=== PATIENT | female | born 1995 | race Two or more races ===

== ENCOUNTER 2024-09-25 05:11 | Emergency (ER) | payer MEDICAID, SELFPAY ==
[2024-09-25 05:11] VITALS: BMI 42.8
[2024-09-25 05:25] VITALS: BP 134/92; PULSE 83; RESP 18; TEMP 36.8; O2SAT 94
--- NOTE | 2024-09-25 05:30 | PD.EDRME ---
Rapid Medical Screening Exam [facility] Arrival date/time: 09/25/24 05:11 28F with history of asthma presents to ED with several days of cough, congestion, and SOB. Patient has been taking 20 mg prednisone BID from PCP and using her albuterol w/o relief. Chief Complaint: Shortness of Breath/Dyspnea Vital signs: Vital Signs Temperature 98.3 F 09/25/24 05:25 Pulse Rate 83 09/25/24 05:25 Respiratory Rate 18 09/25/24 05:25 Blood Pressure 134/92 H 09/25/24 05:25 Pulse Oximetry (%) 94 L 09/25/24 05:25 Oxygen Delivery Method Room Air 09/25/24 05:25
[2024-09-25] MEDS: DEXAMETHASONE SOD PHOS INJ 10 MG/ML VIAL PO (05:50)
[2024-09-25] MEDS: IPRATROPIUM RT 0.5 MG/ 2.5 ML NEBU 1 MG INH (05:59)
[2024-09-25] MEDS: LEVALBUTEROL RT 1.25 MG/0.5 ML NEBU 5 MG INH (05:59)
[2024-09-25 06:04] VITALS: PULSE 98; RESP 16; O2SAT 99
--- NOTE | 2024-09-25 06:54 | XR_ITS ---
Examination: PA lateral chest 2 views TECHNIQUE: Upright PA and lateral chest 2 views Exam date and time: September 25, 2024, 0723 hours Comparison February 07, 2022 INDICATIONS: Shortness of breath today. FINDINGS: Mild to moderate vascular congestion Normal heart size No lobar pneumonia Osseous structures are intact IMPRESSION: Mild to moderate vascular congestion
--- NOTE | 2024-09-25 07:09 | PD.EDSOB ---
ED SOB =RME/HPI General Chief Complaint: Shortness of Breath/Dyspnea Stated Complaint: DIFFICULTY BREATHING X 3 DAYS Time Seen by Provider: 09/25/24 06:08 Arrival date/time: 09/25/24 05:11 28-year-old female with a history of asthma presents to the emergency room with a chief complaint of coughing, congestion, shortness of breath x 3 days. Patient has been seen by her primary care provider and has been prescribed prednisone and Tamiflu. Patient states she has been using her albuterol inhaler with no relief. Limitations: no limitations RME / HPI RME / HPI Narrative: 09/25/24 05:11 28F with history of asthma presents to ED with several days of cough, congestion, and SOB. Patient has been taking 20 mg prednisone BID from PCP and using her albuterol w/o relief. Related Data Home Medications ?Medication ?Instructions ?Recorded ?Confirmed albuterol sulfate 90 mcg/actuation 2 puff inhalation BID PRN 06/23/18 11/08/19 aerosol inhaler (ProAir HFA) Shortness Of Breath Previous Rx's ?Medication ?Instructions ?Recorded budesonide-formoterol HFA 80 2 puff inhalation BID ashtma #6.9 09/28/18 mcg-4.5 mcg/actuation aerosol grams inhaler albuterol sulfate 90 mcg/actuation 2 puff inhalation Q6H PRN 11/08/19 aerosol inhaler (Ventolin HFA) shortness of breath or wheezing #8.5 grams albuterol sulfate 90 mcg/actuation 1 inh inhalation QID PRN shortness 01/30/21 aerosol inhaler (ProAir HFA) of breath or wheezing #6.7 grams azithromycin 250 mg tablet See Rx Instructions PO .COMPLEX #6 01/30/21 (Zithromax Z-Deejay) tabs hydrocodone 5 mg-acetaminophen 325 1 tab PO BID PRN pain #10 tabs 04/10/21 mg tablet ibuprofen 800 mg tablet 800 mg PO TID PRN pain #30 tabs 04/10/21 Allergies Allergy/AdvReac Type Severity Reaction Status Date / Time No Known Allergies Allergy Verified 09/25/24 05:16 Review of Systems Review of Systems Systems Reviewed: All systems reviewed, normal except as documented Constitutional Constitutional: Reports system reviewed and no additional complaints, except as documented, Denies fatigue, Denies fever(s), Denies headache(s) and Denies weakness Eyes Eyes: Reports system reviewed and no additional complaints, except as documented, Denies blurry vision and Denies change in vision ENT Ears, Nose, Mouth, and Throat: Reports system reviewed and no additional complaints, except as documented, Denies otalgia, Denies headache(s), Denies nasal congestion, Denies throat swelling and Denies vertigo Cardiovascular Cardiovascular: Reports system reviewed and no additional complaints, except as documented, Denies chest pain, Reports dyspnea and Reports dyspnea on exertion Respiratory Respiratory: Reports system reviewed and no additional complaints, except as documented, Reports chest congestion, Reports cough, Reports dyspnea, Reports dyspnea on exertion, Reports excessive phlegm production and Reports wheezing Gastrointestinal Gastrointestinal: Reports system reviewed and no additional complaints, except as documented, Denies abdominal pain, Denies cramping, Denies nausea and Denies vomiting Genitourinary Genitourinary: Reports system reviewed and no additional complaints, except as documented Musculoskeletal Musculoskeletal: Reports system reviewed and no additional complaints, except as documented and Denies back pain Integumentary/Breasts Skin/Breast: Reports system reviewed and no additional complaints, except as documented and Denies wounds Neurologic Neurologic: Reports system reviewed and no additional complaints, except as documented, Denies confusion, Denies headache(s), Denies lack of coordination, Denies vertigo and Denies weakness Psychiatric Psychiatric: Reports system reviewed and no additional complaints, except as documented, Denies anxiety, Denies confusion, Denies depression, Denies paranoia, Denies suicidal ideation and Denies tactile hallucinations Endocrine Endocrine: Reports system reviewed and no additional complaints, except as documented and Denies fatigue Hematologic/Lymphatic Hematologic/Lymphatic: Reports system reviewed and no additional complaints, except as documented and Denies lymphadenopathy Allergic/Immunologic Allergic/Immunologic: Reports system reviewed and no additional complaints, except as documented, Denies throat swelling, Denies urticaria and Reports wheezing ED Exam General Limitations: Present no limitations General appearance: Present alert and in no apparent distress Head Head exam: Present atraumatic Eye Eye exam: Present normal appearance, PERRL and EOMI ENT ENT exam: Present normal exam, normal oropharynx and mucous membranes moist Neck Neck exam: Present normal inspection, full ROM and trachea midline Chest Chest inspection: Present normal inspection and symmetric chest wall rise Respiratory Respiratory exam: Present normal lung sounds bilaterally and wheezes; Absent respiratory distress, stridor, accessory muscle use or prolonged expiratory phase Expanded Respiratory Exam Location: Left: wheezes, Right: wheezes, Upper: wheezes and Lower: wheezes Cardiovascular Cardiovascular exam: Present regular rate, normal rhythm and normal heart sounds Abdominal Exam Abdominal exam: Present soft and normal bowel sounds Extremities Exam Extremities exam: Present normal inspection and full ROM Back Exam Back exam: Present normal inspection and full ROM Neurological Exam Neurological exam: Present alert, oriented X3 and CN II-XII intact Psychiatric Psychiatric exam: Present normal affect and normal mood Skin Skin exam: Present warm, dry, intact and normal color Course Quality Measures none Orders Category Date Time Status Bedside Influenza A&B Antigen Test NOW Care 09/25/24 05:30 Completed XR chest 2V Stat Exams 09/25/24 06:54 Completed Dexamethasone Inj [Decadron Inj] Med 09/25/24 05:30 Discontinued 10 mg PO X1 ONE Ipratropium [place] Rt Della [Atrovent Rt Della] Med 09/25/24 05:30 Discontinued 1 mg INH X1 ONE Levalbuterol Rt [Xopenex Rt Della] Med 09/25/24 05:30 Discontinued 5 mg INH X1 ONE Sodium Chloride Rt Della 0.9% [NS Rt Della 0.9%] Med 09/25/24 05:30 Active 3 ml INH PRN PRN Vital Signs Vital signs: Vital Signs Temperature 98.3 F 09/25/24 05:25 Pulse Rate 83 09/25/24 05:25 Respiratory Rate 18 09/25/24 05:25 Blood Pressure 134/92 H 09/25/24 05:25 Pulse Oximetry (%) 94 L 09/25/24 05:25 Oxygen Delivery Method Room Air 09/25/24 05:25 O2 saturation 94% within normal limits Shortness of Breath / Dyspnea MDM Narrative MDM Narrative:: 28-year-old female with a history of asthma presents to the emergency room with a chief complaint of coughing, congestion, shortness of breath x 3 days. Patient has been seen by her primary care provider and has been prescribed prednisone and Tamiflu. Patient states she has been using her albuterol inhaler with no relief. Patient is hemodynamically stable. She is not tachypneic not tachycardic and after breathing treatments her O2 saturation is 99% on room air. Patient's lung sounds sound a lot better during reevaluation. There is only minor wheezing to the left lower lobes. Chest x-ray was completed and was negative for any pneumonic infiltrates. Patient was discharged and educated to follow-up with primary care provider in the next 24 to 48 hours and return to the emergency room for any evidence of worsening signs or symptoms Patient data External records reviewed:: [facility] previous records Clinical information provided by:: patient Social determinants that could affect healthcare access:: none Patient has the following chronic illnesses:: No chronic illness How is presenting disease/condition affected by chronic disease/condition?: no chronic disease Evaluation data The following diagnostics were reviewed and interpreted by me:: lab results and radiology exam(s) Lab and/or radiology exams considered but not ordered:: Labs and radiology exams considered and ordered Interpretation Summary: Chest [id number]: Mild to moderate vascular congestion Normal heart size No lobar pneumonia Osseous structures are intact IMPRESSION: Mild to moderate vascular congestion Medications / Prescriptions Medications or Prescriptions considered but not ordered:: Medication given Medication administrations:: Medication Administration History Sodium Chloride (Sodium Chloride Rt Della 0.9% 3 Ml Nebu) 3 ml INH PRN PRN PRN Reason: SOLN Stop: 10/25/24 05:29 Discontinued Medications Dexamethasone Sodium Phosphate (Dexamethasone Sod Phos Inj 10 Mg/Ml Vial) 10 mg PO X1 ONE Stop: 09/25/24 05:31 Last Admin: 09/25/24 05:50 Dose: 10 mg Documented By: Ipratropium [place] (Ipratropium Rt 0.5 Mg/ 2.5 Ml Nebu) 1 mg INH X1 ONE Stop: 09/25/24 05:31 Last Admin: 09/25/24 05:59 Dose: 1 mg Documented By: Levalbuterol HCl (Levalbuterol Rt 1.25 Mg/0.5 Ml Nebu) 5 mg INH X1 ONE Stop: 09/25/24 05:31 Last Admin: 09/25/24 05:59 Dose: 5 mg Documented By: MR Medication given Consultations Consultation(s) initiated? (list below): No Diagnosis Shortness of Breath Differential Diagnosis: community acquired pneumonia, asthma with exacerbation and other (Influenza/COVID-19) Most likely diagnosis given after review of the tests above:: Asthma exacerbation Admission Indicated Admission indicated?: not indicated Admission Request Was there a request for admission?: No Disposition Plan Disposition Plan: Discharge Discharge Attestation Discharge Attestation: The patient and all family members were given an opportunity to ask questions and understood the discharge instructions. Discharge instructions specifically effects, indications for sooner follow up or return to the emergency department, and the expected course of current diagnosis. Patient condition: Stable Discharge Plan Plan Patient Disposition: HOME (Self Care) Disposition Comment: Stable Prescriptions/Referrals Prescriptions/Med Rec: No Action budesonide-formoterol 80-4.5 mcg/actuation HFA aerosol inhaler 2 puff INH BID Qty: 6.9 2RF albuterol sulfate [Ventolin HFA] 90 mcg/actuation HFA aerosol inhaler 2 puff INH Q6H PRN (Reason: shortness of breath or wheezing) Qty: 8.5 0RF ibuprofen 800 mg tablet 800 mg PO TID PRN (Reason: pain) Qty: 30 0RF hydrocodone-acetaminophen 5-325 mg tablet 1 tab PO BID MDD 10 PRN (Reason: pain) Qty: 10 0RF albuterol sulfate [ProAir HFA] 90 mcg/actuation Hfa Aerosol Inhaler 2 puff INHALATION BID PRN (Reason: Shortness Of Breath) albuterol sulfate [ProAir HFA] 90 mcg/actuation HFA aerosol inhaler 1 inh inhalation QID PRN (Reason: shortness of breath or wheezing) Qty: 6.7 2RF azithromycin [Zithromax Z-Deejay] 250 mg tablet See Rx Instructions PO .COMPLEX Qty: 6 0RF Rx Instructions: take 500 mg today (day 1), then 250 mg for 4 days (days 2-5) Referrals: Isaac Johnson MD [Primary Care Provider] - In 1 week Problem List Clinical Impression: Asthma with exacerbation Patient/Caregiver Discharge Instructions Education Materials: Asthma Action Plan, ED Asthma, Acute (Adult) Additional Instructions: Please follow-up with your primary care provider in the next 24 to 48 hours. Your chest x-ray was negative for any pneumonic infiltrates. Your COVID-19 and influenza test were both negative For any evidence of worsening signs or symptoms return to the emergency room immediately Print Language: Malaysian Stand Alone Forms: Tashia Award Info., Patient Portal Info Letter PA/AIRPORT REFUELING [employer]ER Supervising Physician PA/AIRPORT [employer]FUELING [employer] Supervising Physician: Dr. Lang
== END 2024-09-25 08:06 | disposition home or self-care (01) ==
PROVIDERS: Emergency Provider Family Medicine; PCP Family Medicine
DX: J45.901 Unspecified asthma with (acute) exacerbation (principal)
CPT/HCPCS: 71046; 87400; 94644; 99283; J1100